=== PATIENT | female | born 1965 | race Caucasian/White ===

== ENCOUNTER 2020-01-03 02:44 | Outpatient (CLI) | payer BC, SELFPAY ==
--- NOTE | 2020-01-03 13:15 | DI.MRI_ITS ---
EXAM: MR BRAIN WO CLINICAL HISTORY: new left sided headaches/head pressure,R51 TECHNIQUE: Multiplanar multisequence MRI of the brain was performed. COMPARISON: No exams were available for comparison FINDINGS: VENTRICLES AND EXTRA AXIAL SPACES: Normal in size and morphology for the patient's age. MIDLINE SHIFT: None. CEREBRAL PARENCHYMA: No focus of restricted diffusion to suggest acute infarct. No space-occupying le aurora identified. There are a few nonspecific hyperintense foci within the white matter on the T2 and FLAIR images. HEMORRHAGE: None. BRAINSTEM/CEREBELLUM: Normal. CALVARIUM: Normal. VISUALIZED PARANASAL SINUSES/MASTOIDS:Clear. [place]: Normal flow void. PITUITARY GLAND: Unremarkable. OTHER FINDINGS: Orbits and retro-orbital soft tissues are unremarkable. IMPRESSION: Nonspecific hyperintense foci in the white matter as described. This may represent early small vesse l ischemic disease or other demyelinating process. A six-month follow-up MRI of the brain may be con sidered to document stability of these foci. DATA REPOSITORY:
[2020-01-03 13:59] LABS: Hemoglobin A1C 5.4 % (3.8-5.6)
[2020-01-03 14:44] LABS: ESR 9 mm/hr (0-30)
[2020-01-03 15:07] LABS: TSH 1.71 uIU/mL (0.36-3.74); Vitamin B12 364 pg/mL (193-986)
[2020-01-04 14:16] LABS: Albumin 62.1 % (55.8-66.1); Total Protein 7.1 g/dL (6.3-8.2)
== END 2020-01-03 03:04 ==
PROVIDERS: PCP Family Medicine; Visit Provider Nurse Practitioner Adult Health
DX: R51 Headache (principal); G62.9 Polyneuropathy, unspecified; R90.82 White matter disease, unspecified
CPT/HCPCS: 36415; 85652; 70551; 82607; 83036; 84165; 84443